=== PATIENT | male | born 1960 | race Caucasian/White ===

== ENCOUNTER 2024-04-25 10:20 | Emergency (ER) | payer OTHER ==
[2024-04-25] MEDS: Ketorolac 30 MG/ML SDV IM ONE (11:39)
[2024-04-25] MEDS: Benzonatate 100 MG Cap PO ONE (11:40)
== END 2024-04-25 13:25 | disposition home or self-care (01) ==
LOC: JP.ED 10:20
DX: S29.011A Strain of muscle and tendon of front wall of thorax, initial encounter (principal); R05.1 Acute cough; Z79.899 Other long term (current) drug therapy; Z91.041 Radiographic dye allergy status; X50.0XXA Overexertion from strenuous movement or load, initial encounter; Y93.89 Activity, other specified
CPT/HCPCS: 71250; 96372; 99283; A9270; J1885